=== PATIENT | male | born 1970 | race Two or more races ===

== ENCOUNTER 2021-04-27 01:03 | Emergency (ER) | payer MEDICAID ==
[~2021-04-27] VITALS: Ht 175.3 cm; Wt 95.3 kg
--- NOTE | 2021-04-27 01:18 | NUR ---
PT [id number] FROM THE [place], FOUND UNCONSCIOUS AND OVERDOSED ON DRUGS GIVEN 8MG NARCAN NASAL SPRAY BY EMS NOW ALERT AND ORIENTED X3. AMBULATORY WITH NON LABORED BREATHING PLACED IN BED 13 ON MONITOR AND POX.
[2021-04-27] MEDS ORDERED: NALO4SPR BNOSTRILS (01:20)
--- NOTE | 2021-04-27 02:58 | NUR ---
[facility] AT BEDSIDE
--- NOTE | 2021-04-27 03:32 | NUR ---
Robert dickens in [facility] - 04/27/21 at 0333 by WILMER PT TAKEN TO CT VIA SAMANTHA
--- NOTE | 2021-04-27 04:50 | NUR ---
Patient discharged to home in stable condition. RX Written and verbal after care instructions given. Patient verbalizes understanding of instruction. PT ambulatory with a steady gait
[2021-04-27 04:51] VITALS: BP 161/99
== END 2021-04-27 04:52 | disposition home or self-care (01) ==
LOC: ER 01:11
DX: T40.601A Poisoning by unspecified narcotics, accidental (unintentional), initial encounter (principal); Z59.00 Homelessness unspecified; Y92.89 Other specified places as the place of occurrence of the external cause